=== PATIENT | female | born 1955 | race Caucasian/White ===

== ENCOUNTER 2016-07-30 13:10 | Inpatient (IN) | payer MEDICARE, OTHER ==
[~2016-07-30] VITALS: Ht 167.6 cm; Wt 82.3 kg
[~2016-07-30 13:10] MED LIST: ACCUNEB DP0.63 MG/3 IH; ACCUNEB DP0.63 MG/3 PO; APAP PO; ATIVAN-DPS1 MG PO; BENADRYL CRM, 230 GM TP; BUDESONIDE 3 MG PO; CALCIUM 500 +1 EAC3 PO; CARAFATE DPS1 GM PO; CREON DR 12,001 EACH PO; CREON DR 36,001 EACH PO; CYTOMEL25 MCG PO; CYTOMEL50 MCG PO; DELTASONE DPS5 MG PO; EFFEXOR XR DPS150 MG PO; ENTOCORT EC DPS3 MG PO; FAMVIR500 MG PO; HUMIRA40 MG/0.1 SQ; HUMIRA40 MG/0.8 SQ; KENALOG CR 0.0280 GM TP; MICRO-K DPS10 MEQ PO; ONDANSETRON ODT8 MG PO; OXYCODONE PO; OXYCODONE-ACET1 EAC1 PO; PRILOSEC DPS20 MG PO; PROVENTIL HFA6.7 GM IH; PROVENTIL2.5 MG/0.5 IH; RECLAST5 MG/100 M IV; SENOKOT S1 TAB PO; SYMBICORT160 MCG/6 IH; SYNTHROID DPS0.2 MG PO; SYNTHROID300 MCG PO; TRIAMCINOLONE454 GM TP; VERAPAMIL SR120 MG PO; VITAMIN B-121000 MCG PO; VITAMIN D250000 UNIT PO; ZYRTEC DPS10 MG PO
--- NOTE | 2016-08-05 09:08 | ER ---
ADMIT: 07/30/2016 RM/LOC: 517 [facility] MR#: [id number] [facility]#: [id number] [address] [address] BILL ROBERTO [address] [place] [address] Emergency Room Report SEX: F AGE: 61 : 1955 DATE: 07/30/2016 BRIEF ADDENDUM: Please see my T-sheet for complete review of systems, past medical history, and physical exam. CHIEF COMPLAINT: Abdominal pain. HISTORY OF PRESENT ILLNESS: A 61-year-old female, who presents with 4 days' duration of not feeling well. States she woke at midnight last evening with diarrhea and nausea and vomiting. She is unable to keep her medications down. She is feeling very poorly. Rates her abdominal pain as a 10/10. Denies any blood in her vomit or stools. Admits to cough and shortness of breath. Denies any constipation. Had a normal bowel movement yesterday. No problems urinating. PAST MEDICAL HISTORY: 1. Pancreatitis. 2. Crohn disease. 3. Hypothyroidism. 4. IBS. 5. GERD. 6. Osteoarthritis. 7. Anxiety. 8. Chronic pain. 9. Asthma. 10.Gastroparesis. PAST SURGICAL HISTORY: 1. She is status post cholecystectomy. 2. Multiple bowel resections. 3. Nephrectomy. 4. T and A. 5. ERCP. 6. Tubal ligation. 7. Multiple ureteral stents. SOCIAL HISTORY: She does smoke a pack per day. COURSE IN THE EMERGENCY ROOM: GENERAL: The patient was seen and examined. She is afebrile and nontoxic, in no acute distress. She is alert. NECK: Supple. No lymphadenopathy. RESPIRATORY: She does have some wheezes bilaterally. HEART: Regular rate and rhythm. ABDOMEN: Diffusely tender with guarding. No distention. No rebound. No McBurney's point tenderness. SKIN: Warm and dry. EXTREMITIES: Nontender. No pedal edema. NEURO: She is alert. ADMIT: 07/30/2016 RM/LOC: 517 [facility] MR#: [id number] [address] [address] BILL ROBERTO [address] [place] [address] Emergency Room Report SEX: F AGE: 61 : 1955 LABORATORY STUDIES: White count 9.1, hemoglobin 12.7, hematocrit 37.5, platelets 239. Sodium 137, potassium 3.9, BUN 21, glucose 138, creatinine 1.0, lipase 94, alkaline phosphatase 73, AST 22, ALT 23. UA shows nonacute findings. No evidence of infection. CT abdomen and pelvis shows postoperative changes. No real notable changes since her last study. No signs of bowel obstruction. While in the department, she did have significant pain control needs requiring 2 mg of Dilaudid, 8 mg of Zofran as well as 10 mg of Reglan to get her nausea and pain under control. Given her continued pain complaints and persistent nausea, I did phone Dr. Marquis who is on-call for Dr. Obrien today. He did evaluate the patient in the department and thought it best to admit her for further management of her symptoms. IMPRESSION: 1. Abdominal pain. 2. Nausea, vomiting, and diarrhea. 3. History of Crohn disease. 4. Chronic pancreatitis. 5. Chronic pain. DISPOSITION: The patient was admitted to the floor in the care of Dr. Marquis for Dr. Obrien for further management. Questions were sought and answered to the best of my ability and to the patient's satisfaction. Discharged to the floor in stable condition. SUZY Damon / Jose C Burris MD / clayton JOB #: [id number] CC: Sebastian Marquis MD, Attending Physician Kari Obrien MD, Family Physician
[2016-08-06] MEDS ORDERED: PROAIR RESPICL90 MCG IH (11:25)
[2016-08-06] MEDS ORDERED: SYMBICORT160 MCG/6 IH (11:26)
[2016-08-06] MEDS ORDERED: CYANOCOBAL1000 MCG/1 IM (11:29)
[2016-08-06] MEDS ORDERED: VITAMIN D250000 UNIT PO (11:30)
[2016-08-06] MEDS ORDERED: FAMVIR250 MG PO (11:30)
[2016-08-06] MEDS ORDERED: ATIVAN-DPS1 MG PO (11:31)
[2016-08-06] MEDS ORDERED: CYTOMEL25 MCG PO (11:31)
[2016-08-06] MEDS ORDERED: EFFEXOR XR DPS150 MG PO (11:32)
[2016-08-06] MEDS ORDERED: ONDANSETRON ODT8 MG PO (11:32)
[2016-08-06] MEDS ORDERED: TYLENOL DPS325 MG PO (11:33)
[2016-08-06] MEDS ORDERED: MIRALAX PACKET17 GM PO (11:33)
[2016-08-06] MEDS ORDERED: PERCOCET 5-3251 EACH PO (11:34)
[2016-08-06] MEDS ORDERED: PRILOSEC DPS20 MG PO (11:34)
[2016-08-06] MEDS ORDERED: VITAMIN D350000 UNIT PO (11:35)
[2016-08-06] MEDS ORDERED: OYSCO 500+D TA1 EACH PO (11:36)
[2016-08-06] MEDS ORDERED: SYNTHROID112 MCG PO (11:36)
[2016-08-06] MEDS ORDERED: ZYRTEC DPS10 MG PO (11:36)
[2016-08-06] MEDS ORDERED: ACCUNEB DP0.63 MG/3 IH (11:37)
[2016-08-06] MEDS ORDERED: ENTOCORT EC DPS3 MG PO (11:37)
--- NOTE | 2016-08-09 07:55 | HP ---
ADMIT: 07/30/2016 RM/LOC: 517 [facility] MR#: [id number] [address] [address] BILL ROBERTO [address] [place] [address] History and Physical SEX: F AGE: 61 : 1955 DATE OF SERVICE: CHIEF COMPLAINT: Abdominal pain and nausea and vomiting. HISTORY OF PRESENT ILLNESS: Bill is a very nice 61-year-old female, who is well known to [facility]. She does chronically see Dr. Kari Obrien. She does have a very complex history of Crohn disease. She has had extensive operative intervention as well. She does have difficulty with chronic abdominal pain as well as chronic nausea. She does have chronic pancreatitis with pancreatic insufficiency, exocrine insufficiency. She does have also gastroparesis. She is on chronic immunosuppressive therapy. She was in her normal state of health. She does have frequent flares of nausea and vomiting and abdominal pain. She does back off on her diet, initiate bowel rest, and this does usually improve her symptoms. However, she did not get much improvement with conservative management at home. She just kept retching, just unable to keep anything down even though she did have resolution of her diarrhea. Therefore, she came to the ER. She was evaluated by Jaden with ER staff. Did have appropriate goal-directed evaluation with basic laboratory urinalysis as well as a CT scan. Her laboratories are largely unremarkable. She has some nonspecific findings in her urine, and her CT is postoperative and actually quite unchanged. However, she is requiring substantial amounts of medications to control her nausea as well as abdominal pain. The patient has tried the conservative route and actually has not actually improved. Concern is if she will develop a small bowel obstruction as she has done in the past. Therefore, we will go ahead and admit her to an inpatient status and monitor her. PAST MEDICAL HISTORY: 1. Crohn disease. 2. Multiple surgical interventions. 3. Pancreatic insufficiency. 4. Chronic pancreatitis. 5. GERD. 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 7. Anxiety. 8. Osteoarthritis. 9. Chronic nausea. 10.Chronic pain syndrome. 11.Chronic renal insufficiency. 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 13.Seizure disorder. 14.Thrombocytopenia. 15.Elevated liver enzymes. 16.Osteoporosis. 17.Gastroparesis. 18.History of C. diff colitis. 19.Status post cholecystectomy. 20.Status post multiple interventions for small bowel obstructions. ADMIT: 07/30/2016 RM/LOC: 517 [facility] MR#: [id number] [address] [address] BILL ROBERTO [address] [place] [address] History and Physical SEX: F AGE: 61 : 1955 MEDICATIONS: 1. Humira. 2. DuoNeb. 3. Tessalon. 4. Entocort. 5. Symbicort. 6. Cetirizine. 7. Vitamin B12. 8. Vitamin D. 9. Lexapro. 10.Famciclovir. 11.Levothyroxine. 12.Liothyronine. 13.Pancreatic enzymes. 14.Ativan. 15.Zofran. 16.Percocet. 17.Compazine. 18.Kenalog. 19.Periodic zoledronic acid infusions. ALLERGIES: 1. FENTANYL. 2. MESALAMINE. 3. RIFAXIMIN. 4. CIPROFLOXACIN. 5. OLSALAZINE. 6. LAMICTAL. 7. PRILOSEC. 8. SCOPOLAMINE. 9. STADOL. 10.WELLBUTRIN. FAMILY HISTORY: Father had heart disease and cancer. Mother had Graves disease and heart disease. Brother had a motor vehicle accident. Sister had breast and cervical cancer. Daughter has Crohn disease. Grandchild has hereditary spherocytosis. SOCIAL HISTORY: She smokes. She does not drink. She does not do drugs. REVIEW OF SYSTEMS: Complete review of systems reviewed per HPI. PHYSICAL EXAMINATION: VITAL SIGNS: Blood pressure in the room was actually 108/70, pulse was 90, respiratory rate was 20. She is on room air. She is afebrile. GENERAL: She is alert and oriented x3. She is actually much more comfortable now. Still sitting up with vomit bag as she thinks she is going to have ADMIT: 07/30/2016 RM/LOC: 517 [facility] MR#: [id number] [address] [address] BILL ROBERTO [address] [place] [address] History and Physical SEX: F AGE: 61 : 1955 emesis. HEENT: Normocephalic, atraumatic. Extraocular muscles are intact unilaterally. She did also have some chronic difficulty to this secondary to the congenital glaucoma. No nasal discharge. Mucous membranes are dry. HEART: Regular. LUNGS: Distant, but clear. ABDOMEN: Soft, not rigid with no rebound, no masses. Positive bowel sounds. EXTREMITIES: No clubbing or cyanosis. Maybe has some trace lower extremity edema. NEURO: No focal deficits. LABORATORY DATA: White blood cells are normal at 9.1, hemoglobin is 12.7, platelets are 239. Sodium 137, potassium is 3.9, chloride is 103, bicarb is 25, BUN is 21, glucose 138, calcium is 9.2, creatinine is 1. Total bilirubin 0.7, total protein is 8, albumin is 4.4, alkaline phosphatase 73, AST is 22, ALT is 23, lipase is 94. UA is equivocal. Does have some leukocyte esterase, trace nitrites, negative abdominal pelvis. CT is negative. ASSESSMENT AND PLAN: 1. Intractable nausea and vomiting. 2. Acute on chronic abdominal pain. 3. Gastroparesis. 4. Crohn disease. 5. Hypovolemia. 6. Diarrhea. 7. Chronic pain syndrome. 8. Anxiety and depression. 9. Chronic immunosuppressive therapy. The patient is clinically improved. However, she is still dehydrated, does not feel that she can get well along at home. Still required very large doses of narcotics and antiemetics to achieve some mild relief. We will go ahead and place her on telemetry in the hospital, put her on some normal saline at 125 mL an hour, some p.r.n. Zofran, p.r.n. IV morphine. I may also place her ADMIT: 07/30/2016 RM/LOC: 517 [facility] MR#: [id number] [address] [place] [id number] BILL ROBERTO [address] [place] [address] History and Physical SEX: F AGE: 61 : 1955 on some p.r.n. anxiolytics. We will also go ahead and maintain her as an n.p.o. status and give her bowel rest. I will not give her pharmacologic DVT prophylaxis as I am concerned that she may progress in the next 24 hours to have an overt obstruction even though she does not at this point secondary to her history. If she does improve over the next 24 hours, we will go ahead and initiate some subcutaneous heparin for DVT prophylaxis. In the meantime, she will be on SCD's and RADHA's. She does wish to be a full code. I discussed the plan with the patient, who expressed understanding, was in agreement, and had no further questions. Sebastian Marquis MD/ clayton JOB #: [id number] CC: Sebastian Marquis, Attending Physician Kari Obrien, Family Physician Kari Obrien MD
--- NOTE | 2016-08-16 08:47 | DS ---
ADMIT: 07/30/2016 RM/LOC: 517 [facility] MR#: [id number] [address] [address] BILL ROBERTO [address] [place] [address] Discharge Summary SEX: F AGE: 61 : 1955 ADMISSION DATE: 07/30/2016 DISCHARGE DATE: 08/05/2016 DIAGNOSES: 1. , acute on chronic. 2. Nausea and vomiting. 3. Crohn's disease. 4. Hypothyroidism. 5. . 6. Ileus-resolved. 7. Solitary kidney. 8. Elevated creatinine. CONSULTS: None. PROCEDURES: CT abdomen and pelvis, 07/30/2016. LABORATORY AND X-RAY DATA: CT scan of the abdomen and pelvis was unremarkable. X-ray of the abdomen a few days later showed mild ileus and some atelectasis. Followup x-ray on 08/03/2016 with nonspecific large bowel gas pattern. No cultures obtained. Sodium 145, potassium down to 3.3, final value 3.8, chloride 110, CO2 28, BUN 13, creatinine up to 1.2, final value 1.1. Calcium was 8.2, total protein 5.9, albumin 3.3, GFR was over 50, TSH 1.26, CRP less than 0.29, white count 8.8, hemoglobin 10.4, platelet count 206. COURSE IN HOSPITAL: Allison was admitted after having had a CT scan of her abdomen and pelvis performed. Did not look too impressive. She was given Phenergan with IV fluids. She did feel a little bit better over the next day or so. She continued to have nausea and vomiting. After an episode of some diarrhea, her bowels did seem to firm up. A little more on the constipated side. Throughout her hospital stay, she was a little more constipated which was unusual for her. Started looking at things and we had her Entocort bumped up to 9 and decided that we should probably decrease the Creon sometimes for malabsorption but it does not seem that she has that issue today. Medications were adjusted. Potassium was supplemented. Creon was decreased and eventually discontinued due to her constipation, which is a little unusual for her. She was started on MiraLAX daily for her bowels. Hopefully, that would help. Just prior to discharge, she did not have results yet. We did discuss doing a can of Mag citrate if indicated. She has done this before with some of her preps. At this time, she will be dismissed on many of her home medications but no Creon. She will get a B12 shot on dismissal. An appointment with made in August. MEDICATIONS: Medications will include: 1. Synthroid 0.1 daily. 2. Cytomel 50 mg daily. 3. Effexor XR 150 b.i.d. 4. Entocort EC 3 mg, three pills daily. ADMIT: 07/30/2016 RM/LOC: 517 [facility] MR#: [id number] [address] [address] BILL ROBERTO [address] [place] [address] Discharge Summary SEX: F AGE: 61 : 1955 5. Prilosec 20 mg daily. 6. Symbicort 160/4.5, two pills b.i.d. 7. Albuterol inhaler two q.6h p.r.n. 8. Tessalon Perles 100 q.8h p.r.n. 9. Proventil HFA p.r.n. 10.Calcium carbonate 500 b.i.d. 11.Zyrtec 10 daily p.r.n. 12.Vitamin D3, 50,000 on Tuesday and Tuesday. 13.Famvir 500 q.8h p.r.n. 14.Ativan 1 mg q.6h p.r.n. 15.Zofran ODT 8 mg, q.6 hours p.r.n. 16.Percocet 5/325, two q.5h p.r.n. PROGNOSIS: Overall, prognosis is good. Kari Obrien MD/ vdg JOB #: [id number] CC: Kari Obrien MD, Attending Physician Kari Obrien MD, Family Physician
[2016-09-08] MEDS ORDERED: PEPCID DPS20 MG PO (08:24)
[2016-09-08] MEDS ORDERED: TESSALON PERLE100 M1 PO (08:24)
[2016-09-08] MEDS ORDERED: CARAFATE DPS1 GM PO (08:24)
[2016-09-08] MEDS ORDERED: OYSTER SHELL C500 MG PO (08:25)
[2016-09-08] MEDS ORDERED: ZYRTEC DPS10 MG PO (08:25)
[2016-09-08] MEDS ORDERED: KLOR-CON M2020 ME1 PO (08:31)
[2016-09-08] MEDS ORDERED: FLEXERIL-DPS10 MG PO (08:31)
[2016-09-08] MEDS ORDERED: DELTASONE DPS5 MG PO ×2 (08:32→08:33)
[2016-09-08] MEDS ORDERED: HABITROL TD (08:34)
[2016-11-08] MEDS ORDERED: ASCORBIC ACID250 MG PO (13:26)
[2016-11-08] MEDS ORDERED: CALCIUM500 MG PO (13:27)
[2016-11-08] MEDS ORDERED: TUMS200 MG PO (13:28)
[2016-11-08] MEDS ORDERED: TYLENOL DPS325 MG PO (13:28)
[2016-11-08] MEDS ORDERED: LEXAPRO20 MG PO (13:36)
[2016-11-08] MEDS ORDERED: KENALOG OINT. 015 GM TP (13:39)
[2016-11-08] MEDS ORDERED: HUMIRA CRO40 MG/0.8 SQ (13:40)
[2016-11-08] MEDS ORDERED: RECLAST5 MG/100 M IV (13:40)
[2016-11-08] MEDS ORDERED: B-121000 MCG/1 IM (13:42)
[2016-11-08] MEDS ORDERED: FEOSOL-DPS325 MG PO (13:42)
== END 2016-08-05 16:29 | disposition home or self-care (01) | DRG 386 ==
LOC: ER 13:10 → 5MS 17:13
PROVIDERS: ADMIT Internal Medicine
DX: K50.918 Crohn's disease, unspecified, with other complication (principal); K86.1 Other chronic pancreatitis; D69.6 Thrombocytopenia, unspecified; K31.84 Gastroparesis; E86.0 Dehydration; G89.4 Chronic pain syndrome; R10.9 Unspecified abdominal pain; E87.6 Hypokalemia; E03.9 Hypothyroidism, unspecified; K59.00 Constipation, unspecified; M13.80 Other specified arthritis, unspecified site; G40.909 Epilepsy, unspecified, not intractable, without status epilepticus; M81.0 Age-related osteoporosis without current pathological fracture; Q15.0 Congenital glaucoma; K21.9 Gastro-esophageal reflux disease without esophagitis; F17.210 Nicotine dependence, cigarettes, uncomplicated; F41.9 Anxiety disorder, unspecified; J45.909 Unspecified asthma, uncomplicated; Z90.5 Acquired absence of kidney; Z86.61 Personal history of infections of the central nervous system